=== PATIENT | female | born 1945 | race Caucasian/White ===

== ENCOUNTER → 2017-07-07 | Outpatient (CLI) | payer OTHER, MEDICARE | LOC: FIMAGING 10:49 | PROVIDERS: ATTEND Internal Medicine | DX: Z12.31 Encounter for screening mammogram for malignant neoplasm of breast (principal); M81.0 Age-related osteoporosis without current pathological fracture | CPT/HCPCS: G0202 ==

== ENCOUNTER → 2017-12-08 | Outpatient (CLI) | payer OTHER, MEDICARE | LOC: CIMAGING 12:26 → EDSTATUS 16:18 → CIMAGING 16:20 | PROVIDERS: ATTEND Internal Medicine | DX: Z09 Encounter for follow-up examination after completed treatment for conditions other than malignant neoplasm (principal); J90 Pleural effusion, not elsewhere classified; J98.11 Atelectasis | CPT/HCPCS: 71046-PO ==